=== PATIENT | female | born 1990 | race African-American/Black ===

== ENCOUNTER 2018-05-23 23:28 | Emergency (ER) | payer OTHER ==
[~2018-05-23] VITALS: Ht 165.1 cm; Wt 59.0 kg
[~2018-05-23 23:28] MED LIST: NORCO 5-325 TA1 EACH PO; PRENATAL COMPL1 EACH PO; PRENATAL PO
[2018-05-23] MEDS ORDERED: SERTRALINE HCL50 MG PO (23:47)
[2018-05-24] MEDS ORDERED: TYLENOL 8 HOUR650 MG PO (00:18)
[2018-05-24 00:27] VITALS: BP 108/49
== END 2018-05-24 00:35 | disposition home or self-care (01) ==
LOC: ER 23:28
DX: R51 Headache (principal); M54.2 Cervicalgia; V49.9XXA Car occupant (driver) (passenger) injured in unspecified traffic accident, initial encounter; Y93.89 Activity, other specified; Y92.89 Other specified places as the place of occurrence of the external cause; Y99.8 Other external cause status